=== PATIENT | female | born 1965 | race Caucasian/White ===

== ENCOUNTER → 2016-11-12 | Outpatient (CLI) | payer BC ==
[~2016-11-12] MED LIST: ADVIL PM 38 MG-1 TAB PO; AMOXICILLIN 8751 TAB PO; ASPIRIN 81M81 MG/TA2 PO; BONIVA150 MG PO; GLUCOSAMINE & C1 CA1 PO; INDOCIN 25MG CA25 MG PO; IRON325 MG PO; LEXAPRO 10MG10 MG PO; NORCO 325 MG-51 TAB PO; PRILOSEC 20MG20 MG PO; TYLENOL PM EXTR1 TA1 PO; VASOTEC 10M10 MG/TAB PO; VITAMIN D 50,1.25 MG PO; VITAMIN D1000 IU PO
== END ==
LOC: COL.VAS 11:15
DX: I05.8 Other rheumatic mitral valve diseases (principal); R06.02 Shortness of breath; Z95.2 Presence of prosthetic heart valve

== ENCOUNTER → 2017-02-08 | Outpatient (CLI) | payer BC | LOC: MC.RAD 11:13 | DX: Z12.31 Encounter for screening mammogram for malignant neoplasm of breast (principal); Z80.3 Family history of malignant neoplasm of breast ==